=== PATIENT | male | born 1965 ===

== ENCOUNTER 2018-11-16 06:53 | Day surgery (SDC) | payer OTHER ==
[~2018-11-16] VITALS: Ht 177.8 cm; Wt 88.9 kg
[~2018-11-16 06:53] MED LIST: CYCL10 PO; HYDACE5 PO; LISI20 PO; LORA10ER PO; NAPR500 PO; OXYACE5T PO; Percocet 5-3251 EACH PO; Valium5 MG PO
--- NOTE | 2018-11-16 07:31 | NUR ---
History, Chart, Medications and Allergies reviewed before start of procedure. Patient States Post-Procedure ride home has been arranged. Patient states colon prep results clear.
--- NOTE | 2018-11-16 07:58 | NUR ---
11/16/18 0758 Gordon Urban PATIENT DETERMINED TO BE ASA APPROPRIATE FOR PROPOFOL SEDATION PRIOR TO START OF PROCEDURE BY . 3-LEAD EKG REVIEWED WITH PHYSICIAN PRIOR TO START OF PROCEDURE.PATIENT CONFIRMS NPO STATUS AND AGREES WITH SCHEDULED PROCEDURE.History, Chart, Medications and Allergies reviewed before start of procedure.MONITOR INTACT WITH CONTINUOUS PULSE OXIMETRY AND INTERMITTENT BP.O2 VIA N/C INTACT THROUGHOUT SEDATION/PROCEDURE.
--- NOTE | 2018-11-16 08:29 | NUR ---
RECEIVED REPORT FROM ENDO RN (SHEILA). PT IS DROWSY BUT WAKING UP, PLEASANT. WANTS TO GO TO [facility] TO GET A WAFFLE. DR VICENTE SPOKE TO PT. VSS.
--- NOTE | 2018-11-16 08:40 | NUR ---
PT CALLED HIS SHE WILL PICK HIM UP IN 15MIN. PT SITTING UP DRINKING SPRITE.
--- NOTE | 2018-11-16 08:47 | NUR ---
Discharge instructions reviewed with patient. Patient verbalizes understanding. Copy given to patient to take home. PT VOICES NO QUESTIONS OR CONCERNS WITH D/C. PT HAS D/C PAPERWORK. PT HAS ALL PERSONAL BELONGINGS. Patient States Post-Procedure ride home has been arranged.
--- NOTE | 2018-11-16 08:50 | NUR ---
PT GETTING DRESSED. NO COMPLAINTS AT THIS TIME. VSS. IS PT RIDE HOME. Discharged via wheelchair to private car for ride home.
== END 2018-11-16 23:27 | disposition home or self-care (01) ==
LOC: ORSCMMR 06:53 → ORD 08:00 → ORSCMMR 23:27
PROVIDERS: Internal Medicine Gastroenterology
PROC: 0DBN8ZX Excision of Sigmoid Colon, Via Natural or Artificial Opening Endoscopic, Diagnostic (ICD-10-PCS; principal; 2018-11-16 08:00)
DX: Z12.11 Encounter for screening for malignant neoplasm of colon (principal); Z86.010 Personal history of colon polyps; Z83.71 Family history of colonic polyps; K63.5 Polyp of colon; K64.4 Residual hemorrhoidal skin tags; I10 Essential (primary) hypertension; Z79.899 Other long term (current) drug therapy
CPT/HCPCS: 88305; J2704; J7120

== ENCOUNTER 2019-01-23 00:19 | Observation (INO) | payer OTHER ==
[~2019-01-23] VITALS: Ht 177.8 cm; Wt 88.5 kg
[2019-01-23 00:54] LABS: BASOPHILS PERCENT AUTO 0 % (0-2); EOSINOPHILS PERCENT AUTO 0 % (0-6); Hematocrit 37.3 % (37.0-53.0); Hemoglobin 12.4 g/dL (13.5-17.5); IMMATURE GRAN ABSOLUTE AUTO 0.03 K/mm3 (0.00-0.10); IMMATURE GRAN PERCENT AUTO 0 % (0-1); LYMPHOCYTES ABSOLUTE AUTO 1.78 K/mm3 (0.84-5.20); LYMPHOCYTES PERCENT AUTO 20 % (21-46); MONOCYTES ABSOLUTE AUTO 0.58 K/mm3 (0.16-1.47); MONOCYTES PERCENT AUTO 7 % (4-13); Mean Corpuscular HGB 29.7 pg (26.0-34.0); Mean Corpuscular HGB Conc 33.2 g/dL (31.5-36.5); Mean Corpuscular Volume 89 fL (80-100); Mean Platelet Volume 10.3 fL (9.1-12.4); NEUTROPHILS ABSOLUTE AUTO 6.45 K/mm3 (1.96-9.15); NEUTROPHILS PERCENT AUTO 73 % (41-73); Platelet Count 291 K/mm3 (150-400); RDW Coefficient Variation 12.1 % (11.7-14.2); RDW Standard Deviation 39.8 fL (35.1-46.3); Red Blood Cell Count 4.18 M/mm3 (4.30-5.90); White Blood Cell Count 8.84 K/mm3 (4.00-11.30)
[2019-01-23 01:18] LABS: Alanine Aminotransfer (ALT/SGP 34 U/L (12-78); Albumin, Blood 3.7 g/dL (3.4-5.0); Albumin/Globulin Ratio 0.9 (0.8-1.8); Alk Phos 143 U/L (50-136); Anion Gap 6 mmol/L (6-16); Aspartate Aminotrans (AST/SGOT 15 U/L (12-37); Bilirubin, Total 0.4 mg/dL (0.1-1.0); Blood Urea Nitrogen 7 mg/dL (8-24); Bun/Creatinine Ratio 5.4 (12.0-20.0); CO2, Blood 29 mmol/L (21-32); Calcium, Blood 9.7 mg/dL (8.5-10.1); Chloride, Blood 107 mmol/L (98-108); Glomerular Filtration Rate >60 (60-); Glucose, Blood 121 mg/dL (70-99); Potassium, Blood 3.5 mmol/L (3.5-5.5); Sodium, Blood 142 mmol/L (136-145); Total Protein, Blood 7.7 g/dL (6.4-8.2)
--- NOTE | 2019-01-23 03:33 | NUR ---
ARRIVAL TO UNIT PATIENT ARRIVED TO UNIT VIA GURNEY FROM ER. REPORT RECEIVED FROM ER NURSE. PT AA0X4 C/O PAIN IN RLQ AND NAUSEA THAT HAS BEEN MANAGED WITH MEDICATION. ABLE TO TRANSFER SELF TO HOSPITAL BED WITH MINIMAL ASSISTANCE. PATIENT ORIENTED TO ROOM AND UNIT, CALL LIGHT IN REACH. WILL CONTINUE TO MEDICATE PATIENT PER EMAR. PATIENT NPO SINCE ARRIVAL.
--- NOTE | 2019-01-23 06:21 | NUR ---
SHIFT SUMMARY PT ADMITTED FOR APENDICITIS NPO SINCE ARRIVAL TO UNIT, PATIETN MEDICATED FOR NAUSEA PER EMAR. MEDICATED FOR PAIN X1 DURING SHIFT PER EMAR. PATIENT HAS BEEN AA0X4, VSS. PAIN LOCATED IN RLQ, NO VOMITING DURING SHIFT. PATIENT HAS BEEN ASLEEP MOST OF SHIFT.
[2019-01-23 08:56] LABS: Source, Urine Clean Catch
[2019-01-23 09:04] LABS: Bilirubin, Urine Neg (Neg); Blood, Urine Neg (Neg); Glucose Qualitative, Urine Neg (Neg); Ketones, Urine Neg (Neg); Leukocyte Esterase, Urine Neg (Neg); Nitrite, Urine Neg (Neg); Protein, Urine Neg (Neg); Urobilinogen, Urine NORM (Normal)
[2019-01-23 09:10] LABS: Appearance, Urine Clear (Clear); Color, Urine Yellow (P-Yellow)
--- NOTE | 2019-01-23 18:21 | NUR ---
SHIFT SUMMARY PT HAD AMBULATED SEVERAL TIMES TODAY. TOLERATING CLEAR LQS WITHOUT EMESIS BUT NAUSEA CONTINUES. WISHES TO START PHENERGAN LATER IN EVENING DUE TO SIDE EFFECTS OF DROWSINESS. REPORTS SMALL LQ BM. INT ABD PAIN.
--- NOTE | 2019-01-24 03:34 | NUR ---
SHIFT SUMMARY AA0X4, VSS. C/O PAIN IN LOWER ABDOMEN AND SOME NAUSEA MEDICATED BEGINNING OF SHIFT PER EMAR. PATIENT HAS BEEN SLEEPING IN BED DURING REST OF SHIFT. PATIENT REPORTS SOME SMALL LIQUID STOOLS BUT STILL FEELS CONSTIPATED. AMBULATES HALLS INDEPENDENTLY. REPOSITIONING IN BED INDEPENDENTLY.
[2019-01-24 04:05] LABS: BASOPHILS PERCENT AUTO 0 % (0-2); EOSINOPHILS PERCENT AUTO 0 % (0-6); Hematocrit 35.6 % (37.0-53.0); Hemoglobin 11.7 g/dL (13.5-17.5); IMMATURE GRAN ABSOLUTE AUTO 0.03 K/mm3 (0.00-0.10); IMMATURE GRAN PERCENT AUTO 0 % (0-1); LYMPHOCYTES ABSOLUTE AUTO 1.99 K/mm3 (0.84-5.20); LYMPHOCYTES PERCENT AUTO 30 % (21-46); MONOCYTES ABSOLUTE AUTO 0.67 K/mm3 (0.16-1.47); MONOCYTES PERCENT AUTO 10 % (4-13); Mean Corpuscular HGB Conc 32.9 g/dL (31.5-36.5); Mean Corpuscular Volume 88 fL (80-100); Mean Platelet Volume 10.3 fL (9.1-12.4); NEUTROPHILS ABSOLUTE AUTO 4.04 K/mm3 (1.96-9.15); NEUTROPHILS PERCENT AUTO 60 % (41-73); Platelet Count 250 K/mm3 (150-400); RDW Coefficient Variation 12.1 % (11.7-14.2); RDW Standard Deviation 38.8 fL (35.1-46.3); Red Blood Cell Count 4.03 M/mm3 (4.30-5.90); White Blood Cell Count 6.73 K/mm3 (4.00-11.30)
[2019-01-24 04:26] LABS: Alanine Aminotransfer (ALT/SGP 30 U/L (12-78); Albumin, Blood 3.3 g/dL (3.4-5.0); Alk Phos 122 U/L (50-136); Anion Gap 5 mmol/L (6-16); Aspartate Aminotrans (AST/SGOT 14 U/L (12-37); Bilirubin, Total 0.5 mg/dL (0.1-1.0); Blood Urea Nitrogen 7 mg/dL (8-24); Bun/Creatinine Ratio 5.4 (12.0-20.0); CO2, Blood 27 mmol/L (21-32); Calcium, Blood 8.9 mg/dL (8.5-10.1); Chloride, Blood 111 mmol/L (98-108); Globulin, Blood 3.4 g/dL (2.2-4.0); Glomerular Filtration Rate >60 (60-); Glucose, Blood 89 mg/dL (70-99); Potassium, Blood 3.6 mmol/L (3.5-5.5); Sodium, Blood 143 mmol/L (136-145); Total Protein, Blood 6.7 g/dL (6.4-8.2)
[2019-01-24] MEDS ORDERED: BACL10 PO (09:25)
[2019-01-24] MEDS ORDERED: NAPR500 PO (09:26)
[2019-01-24] MEDS ORDERED: ONDA4ODT SL (09:26)
[2019-01-24] MEDS ORDERED: PROM25 PO (09:27)
[2019-01-24] MEDS ORDERED: GAVILAX17 GM PO (09:27)
--- NOTE | 2019-01-24 13:50 | NUR ---
Pt. is sitting up on his bed doing well and will go home today , offered prayers.
== END 2019-01-24 14:09 | disposition home or self-care (01) ==
LOC: ER 00:19 → SURS 00:20
PROVIDERS: Emergency Medicine; ADMIT Surgery
DX: R11.2 Nausea with vomiting, unspecified (principal); R10.31 Right lower quadrant pain; R06.02 Shortness of breath; E78.00 Pure hypercholesterolemia, unspecified; K59.00 Constipation, unspecified; I10 Essential (primary) hypertension; M54.16 Radiculopathy, lumbar region; Z98.1 Arthrodesis status; Z79.899 Other long term (current) drug therapy; Z88.0 Allergy status to penicillin
CPT/HCPCS: 36415; 71046; 72193; 80053; 81003; 84484; 85025; 93005; 93010; 96361; 96365-59; 96375-59; 99285-25; J0692; J1170; J1650; J2405; J2550; J3010; J7030; Q9967

== ENCOUNTER 2024-03-12 05:00 | Emergency (ER) | payer OTHER ==
[~2024-03-12] VITALS: Ht 177.8 cm; Wt 95.2 kg
[~2024-03-12 05:00] MED LIST changes: +BACL10 PO; +GAVILAX17 GM PO; +ONDA4ODT SL; +PROM25 PO
[2024-03-12] MEDS ORDERED: AMLODIPINE BES2.5 MG PO (05:32)
[2024-03-12 05:36] LABS: BASOPHILS ABSOLUTE AUTO 0.01 K/mm3 (0.00-0.23); BASOPHILS PERCENT AUTO 0 % (0-2); EOSINOPHILS ABSOLUTE AUTO 0.01 K/mm3 (0.00-0.68); EOSINOPHILS PERCENT AUTO 0 % (0-6); Hematocrit 44.8 % (37.0-53.0); Hemoglobin 15.5 g/dL (13.5-17.5); IMMATURE GRAN ABSOLUTE AUTO 0.04 K/mm3 (0.00-0.10); IMMATURE GRAN PERCENT AUTO 1 % (0-1); LYMPHOCYTES ABSOLUTE AUTO 1.55 K/mm3 (0.84-5.20); LYMPHOCYTES PERCENT AUTO 24 % (21-46); MONOCYTES ABSOLUTE AUTO 0.71 K/mm3 (0.16-1.47); MONOCYTES PERCENT AUTO 11 % (4-13); Mean Corpuscular HGB 29.8 pg (26.0-34.0); Mean Corpuscular HGB Conc 34.6 g/dL (31.5-36.5); Mean Corpuscular Volume 86 fL (80-100); NEUTROPHILS ABSOLUTE AUTO 4.26 K/mm3 (1.96-9.15); NEUTROPHILS PERCENT AUTO 65 % (41-73); Platelet Count 165 K/mm3 (150-400); RDW Coefficient Variation 13.3 % (11.7-14.2); RDW Standard Deviation 41.3 fL (35.1-46.3); Red Blood Cell Count 5.21 M/mm3 (4.30-5.90); White Blood Cell Count 6.58 K/mm3 (4.00-11.30)
[2024-03-12 06:00] LABS: Albumin, Blood 3.6 g/dL (3.4-5.0); Albumin/Globulin Ratio 1.1 (0.8-1.8); Bilirubin, Total 0.8 mg/dL (0.1-1.0); Bun/Creatinine Ratio 12.5 (12.0-20.0); Calcium, Blood 8.7 mg/dL (8.5-10.1); Creatinine, Blood 1.04 mg/dL (0.60-1.20); Globulin, Blood 3.2 g/dL (2.2-4.0); Total Protein, Blood 6.8 g/dL (6.4-8.2)
[2024-03-12] MEDS ORDERED: Ketorolac Tromethamine 15mg Vial IV ONE (06:35)
[2024-03-12 08:46] VITALS: BP 150/108
== END 2024-03-12 08:46 | disposition home or self-care (01) ==
LOC: ER 05:00
PROVIDERS: Emergency Medicine
DX: S49.92XA Unspecified injury of left shoulder and upper arm, initial encounter (principal); R06.02 Shortness of breath; I10 Essential (primary) hypertension; X58.XXXA Exposure to other specified factors, initial encounter; Z79.899 Other long term (current) drug therapy; Z88.0 Allergy status to penicillin
CPT/HCPCS: 71045; 80053; 83690; 84484; 85025; 93005; 93010; 99284-25; J1885